=== PATIENT | female | born 2000 | race Caucasian/White ===

== ENCOUNTER 2020-06-16 22:28 | Emergency (ER) | payer BC, OTHER ==
[~2020-06-16] VITALS: Ht 157.5 cm; Wt 50.8 kg
[2020-06-16] MEDS ORDERED: ADENOSINE 6 MG/2 ML ONE (22:44)
[2020-06-16] MEDS ORDERED: SODIUM CHLORIDE 0.9% 1,000ML IVBOLUS ONE (23:00)
[2020-06-16] MEDS ORDERED: ADENOSINE 6 MG/2 ML IVPush ONE ×2 (23:00)
[2020-06-16] MEDS ORDERED: SODIUM CHLORIDE FLUSH 10ML SYR IVF ONE (23:00)
--- NOTE | 2020-06-16 23:09 | NUR ---
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 pt placed on cr monitor, and pacing pads placed on pt, ekg done, iv started to left ac, meds collected for treatment. pt anxious and shaky, asked for us to call her mom and update her. Pt has lots of questions, all answered and pt comforted to procedure.
--- NOTE | 2020-06-16 23:10 | NUR ---
MD to bedside, pt on pacer, and monitored on defibrillator as well as cr monitor, meds prepared, with flush, and adenosine administered 6mg iv fast push and flushed fast. Pt HR converted and pt states she didn't feel good, but then that subsided, and pts hr on cr monitor is 99. BP repeated. see v/s.
--- NOTE | 2020-06-16 23:11 | NUR ---
pt remains on cr monitor, and to remain here to monitor for any recurrence. pts bf at bedside.
--- NOTE | 2020-06-16 23:21 | NUR ---
pt sitting up in stretcher, calm and cooperative, in no acute distress, remains on cr monitor, and hr remains 88 at this time, and palpated as same. bf at bedside, pt remains calm.
--- NOTE | 2020-06-17 00:30 | NUR ---
pt sitting up in bed, a&ox4, no distress at this time. remains on cr monitor.
[2020-06-17 00:35] LABS: BASOPHILS % (AUTO) 1 % (0-1); EOSINOPHILS % (AUTO) 1 % (1-7); LYMPHOCYTES % (AUTO) 32 % (22-44); MEAN PLATELET VOLUME 10.8 fL (7.4-10.4); MONOCYTES % (AUTO) 9 % (2-9); NEUTROPHILS % (AUTO) 58 % (42-75); PLATELET COUNT 210 x10^3/uL (130-400); RED BLOOD COUNT 4.24 x10^6/uL (3.82-5.3); RED CELL DISTRIBUTION WIDTH 12.9 % (9.6-15.2)
[2020-06-17 00:39] LABS: MD NO
[2020-06-17 00:43] LABS: ALBUMIN 3.7 g/dL (3.4-5.0); ANION GAP 6 mmol/L (5-15); CALCIUM 9.1 mg/dL (8.5-10.1); CHLORIDE 105 mmol/L (98-107); CREATININE 0.65 mg/dL (0.55-1.02)
--- NOTE | 2020-06-17 01:11 | NUR ---
pt a&ox4, no distress at this time. HR regular on monitor, good BP, note vital signs, and no c/o pain. pt disconnected from monitors and piv removed from left AC, cath tip intact. f/u and d/c instructions given to pt and she v/u.
[2020-06-17 01:12] VITALS: BP 119/72
== END 2020-06-17 01:14 | disposition home or self-care (01) ==
LOC: ED 06-17 00:30
DX: I47.1 Supraventricular tachycardia (principal); R00.2 Palpitations; I48.91 Unspecified atrial fibrillation; R06.00 Dyspnea, unspecified; J45.909 Unspecified asthma, uncomplicated; Z88.5 Allergy status to narcotic agent
CPT/HCPCS: 36415; 71045; 80048; 82040; 83735; 84436; 84443; 84703; 85025; 92960; 93005; 96361; 96374; 99291; J0153; J7030; 99285

== ENCOUNTER 2020-09-13 13:49 | Emergency (ER) | payer BC, OTHER ==
[~2020-09-13] VITALS: Ht 157.5 cm; Wt 47.4 kg
[2020-09-13] MEDS ORDERED: ADENOSINE 6 MG/2 ML ONE (14:05)
--- NOTE | 2020-09-13 14:05 | NUR ---
DR GARCIA AT BEDSIDE TO EVAL PT. PT ON MONITOR, SVT PER MONITOR. IV STARTED BY MIMI OMALLEY. MONITOR PADS PLACE ON PT.
--- NOTE | 2020-09-13 14:21 | NUR ---
DR GARCIA AT BEDSIDE. PT GIVEN 6MG ADENOSINE AT 1416. PT GIVEN 12MG ADENOSINE AT 1418. PT CONVERTED TO ST.
[2020-09-13 14:25] LABS: BASOPHILS % (AUTO) 1 % (0-1); EOSINOPHILS % (AUTO) 1 % (1-7); LYMPHOCYTES % (AUTO) 31 % (22-44); MEAN CORPUSCULAR HEMOGLOBIN 32.6 pg (27.0-34.8); MEAN CORPUSCULAR HGB CONC 34.3 g/dL (32.4-35.8); MEAN PLATELET VOLUME 10.3 fL (7.4-10.4); MONOCYTES % (AUTO) 7 % (2-9); NEUTROPHILS % (AUTO) 60 % (42-75); PLATELET COUNT 304 x10^3/uL (130-400); RED BLOOD COUNT 4.66 x10^6/uL (3.82-5.3); RED CELL DISTRIBUTION WIDTH 14.1 % (9.6-15.2)
[2020-09-13] MEDS ORDERED: SODIUM CHLORIDE 0.9% 1,000ML IVBOLUS ONE (14:30)
[2020-09-13] MEDS ORDERED: SODIUM CHLORIDE FLUSH 10ML SYR IVF ONE (14:30)
[2020-09-13] MEDS ORDERED: ADENOSINE 6 MG/2 ML IVPush ONE ×2 (14:30)
[2020-09-13] MEDS ORDERED: LORazepam 2 MG/ML, 1ML IVPush ONE (14:30)
--- NOTE | 2020-09-13 14:32 | NUR ---
PT RESTING IN ROOM. VS STABLE. SPLIT AND DRUM ROOM SUPERVISOR ON. NSR NOTED. SECOND EKG DONE. PT ON CELL PHONE. CALL LIGHT IN PLACE. WILL CONTINUE TO MONITOR.
[2020-09-13 14:34] LABS: MD NO
[2020-09-13 14:40] LABS: ALBUMIN 4.2 g/dL (3.4-5.0); ANION GAP 8 mmol/L (5-15); CALCIUM 9.7 mg/dL (8.5-10.1); CHLORIDE 104 mmol/L (98-107); CREATININE 0.87 mg/dL (0.55-1.02)
--- NOTE | 2020-09-13 15:10 | NUR ---
PT AMBULATED TO BATHROOM. PT NOW RESTING IN ROOM. VS STABLE. CLOTH WEIGHER ON. NSR NOTED. CALL LIGHT IN PLACE. WILL CONTINUE TO MONITOR.
--- NOTE | 2020-09-13 15:55 | NUR ---
PT HAS BEEN UPDATED BY DR GARCIA. PT READY FOR DC. PT HAS A RIDE HOME FROM A FRIEND. VS STABLE NO ACUTE DISTRESS NOTED.
[2020-09-13 16:01] VITALS: BP_SYST 114
== END 2020-09-13 16:09 | disposition home or self-care (01) ==
LOC: ED 16:03
DX: I47.1 Supraventricular tachycardia (principal); R06.02 Shortness of breath; R00.2 Palpitations
CPT/HCPCS: 36415; 80048; 82040; 83735; 85025; 93005; 96361; 96374; 99284; J0153; J7030; 96360

== ENCOUNTER 2020-09-23 19:05 | Emergency (ER) | payer BC, OTHER ==
[~2020-09-23] VITALS: Ht 157.5 cm; Wt 48.2 kg
--- NOTE | 2020-09-23 19:36 | NUR ---
PT CAME IN [facility]. PT HAD EPISODE OF SVT LAST WEEK AND WAS CHEMICALLY CONVERTED. PT FOUND TO BE IN SVT IN TRIAGE WITH HR OF THE 200S. EKG COMPLETE. WHILE CONDUCTING ASSESSMENT IN ROOM WITH PT - HEAR HR CONVERTED BACK TO A NORMAL SINUS RHYTMN. THE PLAN IS TO DRAW LABS AND CONTINUE TO MONITOR PT. PT CONNECTED TO ALL MONITORING EQUIPMENT. CALL LIGHT WITHIN REACH
[2020-09-23 19:53] LABS: BASOPHILS % (AUTO) 1 % (0-1); EOSINOPHILS % (AUTO) 0 % (1-7); LYMPHOCYTES % (AUTO) 20 % (22-44); MEAN CORPUSCULAR HEMOGLOBIN 32.5 pg (27.0-34.8); MEAN CORPUSCULAR HGB CONC 34.2 g/dL (32.4-35.8); MEAN PLATELET VOLUME 10.2 fL (7.4-10.4); MONOCYTES % (AUTO) 7 % (2-9); NEUTROPHILS % (AUTO) 73 % (42-75); PLATELET COUNT 199 x10^3/uL (130-400); RED BLOOD COUNT 4.15 x10^6/uL (3.82-5.3)
[2020-09-23 19:58] LABS: MD NO
--- NOTE | 2020-09-23 20:02 | NUR ---
PT RESTING IN [facility]. WILL CONTINUE TO MONITOR
[2020-09-23 20:03] LABS: ALBUMIN 3.7 g/dL (3.4-5.0); ANION GAP 7 mmol/L (5-15); CALCIUM 8.6 mg/dL (8.5-10.1); CHLORIDE 106 mmol/L (98-107); CREATININE 0.68 mg/dL (0.55-1.02)
--- NOTE | 2020-09-23 20:37 | NUR ---
[facility]
[2020-09-23 21:05] VITALS: BP 113/78
== END 2020-09-23 21:12 | disposition home or self-care (01) ==
LOC: ED 19:31
DX: I47.1 Supraventricular tachycardia (principal); R06.02 Shortness of breath; J45.909 Unspecified asthma, uncomplicated
CPT/HCPCS: 36415; 80048; 82040; 84703; 85025; 93005; 99285

== ENCOUNTER 2020-10-06 17:35 | Emergency (ER) | payer BC, OTHER ==
[~2020-10-06] VITALS: Ht 157.5 cm; Wt 45.3 kg
[2020-10-06] MEDS ORDERED: METOPROLOL 1 MG/ML, 5ML ONE (18:02)
--- NOTE | 2020-10-06 18:45 | NUR ---
PT STRAIGHT BACK FROM LOBBY. PT TO ROOM PLACED ON ORTHOPTIST. HR FOUND TO BE 220. CART AT BEDSIDE. PT PLACED ON PADS. EKG PERFORMED, IV ACCESS OBTAINED. MD AT BEDSIDE. 6 MG ADENOSINE ADMIN WITH CHANGES TO SINUS TACH. PER VERBAL ORDER 2.5 MG METOPROLOL ADMIN. PT ON CARDIAC, NIBP, AND O2 MONITORING IN PLACE.
[2020-10-06] MEDS ORDERED: ADENOSINE 6 MG/2 ML IVPush ONE (19:00)
[2020-10-06] MEDS ORDERED: METOPROLOL 1 MG/ML, 5ML IVPush ONE (19:00)
--- NOTE | 2020-10-06 19:08 | NUR ---
RECEIVED REPORT FROM LEIGHANN OMALLEY.
--- NOTE | 2020-10-06 19:17 | NUR ---
RECEIVED REPORT FROM LEIGHANN OMALLEY PT RESTING IN BED. CRASH CART AT BEDSIDE ATTACHED TO MONITORS. VSS. FRIEND AT BEDSIDE BED IN LOW POSITION, CALL LIGHT WITHIN REACH.
--- NOTE | 2020-10-06 19:26 | NUR ---
CARE ASSUMED FOR DC. PT DC'D HOME WITH RX X 1 AND UNDERSTANDING OF INSTRUCTIONS. PT ESCORTED TO DC DESK, GAIT STEADY.
[2020-10-06 19:27] VITALS: BP 116/79
[2020-10-06] MEDS ORDERED: ADENOSINE 6 MG/2 ML ONE (21:00)
== END 2020-10-06 19:29 | disposition home or self-care (01) ==
LOC: ED 18:30
DX: I47.1 Supraventricular tachycardia (principal); J45.909 Unspecified asthma, uncomplicated
CPT/HCPCS: 93005; 96374; 96375; 99284; J0153

== ENCOUNTER 2020-10-11 10:44 | Day surgery (SDC) | payer BC, OTHER ==
[~2020-10-11] VITALS: Ht 157.5 cm; Wt 47.3 kg
[2020-10-11] MEDS ORDERED: TRINESSA PO (11:11)
[2020-10-11 11:12] VITALS: BP 115/81
[2020-10-11] MEDS ORDERED: SODIUM CHLORIDE 0.9% 1,000 ML IV SCH (11:30)
[2020-10-11 11:39] LABS: BASOPHILS % (AUTO) 0 % (0-1); EOSINOPHILS % (AUTO) 1 % (1-7); LYMPHOCYTES % (AUTO) 26 % (22-44); MEAN CORPUSCULAR HEMOGLOBIN 32.5 pg (27.0-34.8); MEAN CORPUSCULAR HGB CONC 34.1 g/dL (32.4-35.8); MEAN PLATELET VOLUME 9.9 fL (7.4-10.4); MONOCYTES % (AUTO) 6 % (2-9); NEUTROPHILS % (AUTO) 66 % (42-75); PLATELET COUNT 240 x10^3/uL (130-400); RED CELL DISTRIBUTION WIDTH 13.9 % (9.6-15.2)
[2020-10-11 11:43] LABS: ANION GAP 5 mmol/L (5-15); CALCIUM 9.2 mg/dL (8.5-10.1); CHLORIDE 106 mmol/L (98-107); CREATININE 0.61 mg/dL (0.55-1.02)
[2020-10-11 11:53] LABS: MD NO
[2020-10-11] MEDS ORDERED: ALBUTEROL SULFATE 2.5MG/0.5ML NPPB STA (11:53)
[2020-10-11] MEDS ORDERED: PHENYLEPHRINE 10 MG/ML ONE (12:18)
[2020-10-11] MEDS ORDERED: FENTANYL PF 250 MCG/5ML ONE (12:19)
[2020-10-11] MEDS ORDERED: MIDAZOLAM 1 MG/ML, 2ML ONE (12:19)
[2020-10-11] MEDS ORDERED: LIDOCAINE 1%, 20ML ONE (12:34)
[2020-10-11] MEDS ORDERED: PROPOFOL 10 MG/ML, 20ML ONE (12:39)
[2020-10-11] MEDS ORDERED: ROCURONIUM 10MG/ML,5ML ONE (12:39)
[2020-10-11] MEDS ORDERED: ISOPROTERENOL 0.2MG/ML, 5ML ONE (12:42)
[2020-10-11] MEDS ORDERED: GLYCOPYRROLATE 0.2MG/1ML, 5ML ONE (14:13)
[2020-10-11] MEDS ORDERED: NEOSTIGMINE 1 MG/ML, 10ML ONE (14:13)
[2020-10-11] MEDS ORDERED: MEPERIDINE/PF 25MG/ML,1ML ONE (15:29)
[2020-10-11] MEDS ORDERED: hydrALAzine 20 MG/ML, 1ML IV PRN (16:00)
[2020-10-11] MEDS ORDERED: DIAZEPAM 5 MG/ML, 2ML IVPush PRN (16:00)
[2020-10-11] MEDS ORDERED: HYDROmorphone 1 MG/ML, 1ML INJ IVPush PRN (16:00)
[2020-10-11] MEDS ORDERED: EPHEDRINE 50 MG/ML, 1ML IVPush PRN (16:00)
[2020-10-11] MEDS ORDERED: ONDANSETRON 2MG/ML, 2ML IVPush PRN (16:00)
[2020-10-11] MEDS ORDERED: PROMETHAZINE 12.5 MG SUPP PR PRN (16:00)
[2020-10-11] MEDS ORDERED: MEPERIDINE/PF 25MG/0.5ML IVPush PRN (16:00)
[2020-10-11] MEDS ORDERED: ALBUTEROL SULFATE 2.5 MG/3 ML NPPB PRN (16:00)
[2020-10-11] MEDS ORDERED: FENTANYL PF 100 MCG/2ML IV PRN (16:00)
[2020-10-11] MEDS ORDERED: MIDAZOLAM 1 MG/ML, 2ML IV PRN (16:00)
[2020-10-11] MEDS ORDERED: LORazepam 2 MG/ML, 1ML IVPush PRN (16:00)
[2020-10-11] MEDS ORDERED: DIPHENHYDRAMINE 50 MG/ML, 1ML IVPush PRN ×2 (16:00)
[2020-10-11] MEDS ORDERED: PROMETHAZINE 25 MG/ML, 1ML IVPush PRN (16:00)
[2020-10-11] MEDS ORDERED: OXYcodone 5 MG/5 ML ORAL.SOL UDC PO PRN (16:00)
[2020-10-11] MEDS ORDERED: LABETALOL 5MG/ML, 20ML IV PRN (16:00)
== END 2020-10-11 20:42 | disposition home or self-care (01) ==
LOC: CACL 10:44 → 5SO 16:03 → CACL 20:42
PROVIDERS: ATTEND Internal Medicine Clinical Cardiac Electrophysiology
DX: I47.1 Supraventricular tachycardia (principal); J45.909 Unspecified asthma, uncomplicated; Z79.899 Other long term (current) drug therapy; Z88.5 Allergy status to narcotic agent
CPT/HCPCS: 36415; 71046; 80048; 84703; 85025; 93005; 93613; 93621; 93653; 94640; C1730; C1766; C1769; C1894; C2630; J2175; J2250; J2370; J2704; J2710; J3010; G0378